=== PATIENT | male | born 1980 | race Caucasian/White ===

== ENCOUNTER 2025-04-26 07:52 | Day surgery (SDC) | payer OTHER ==
[2025-04-26] MEDS ORDERED: Propofol 200 MG/20 ML SDV ONE (08:23)
[2025-04-26] MEDS ORDERED: Midazolam 1 MG/ML 2 ML SDV ONE (08:23)
[2025-04-26] MEDS ORDERED: fentaNYL 50 MCG/ML SDV ONE (08:23)
[2025-04-26] MEDS: Lactated Ringers 1,000 ML IV SCH (08:46)
== END 2025-04-26 11:20 | disposition home or self-care (01) ==
LOC: JP.SDS 07:52
PROVIDERS: ATTEND Surgery
DX: Z12.11 Encounter for screening for malignant neoplasm of colon (principal); D12.2 Benign neoplasm of ascending colon; I10 Essential (primary) hypertension; E78.00 Pure hypercholesterolemia, unspecified; Z79.82 Long term (current) use of aspirin; Z79.899 Other long term (current) drug therapy
CPT/HCPCS: 00811; 45385; J2250; J2704; J3010; J7120